=== PATIENT | female | born 1940 | race Caucasian/White ===

== ENCOUNTER 2017-08-12 14:29 | Outpatient (CLI) | payer BC ==
[2017-08-12] MEDS ORDERED: Sodium Chloride 0.9% 15 ML NEB ONE (16:57)
--- NOTE | 2017-08-13 09:28 | PRG ---
DATE OF SERVICE: 08/13/2017 HISTORY: Ms. Ketty Hennessy is a very pleasant 77-year-old accompanied by her who presents [facility] for evaluation of ulcerations of the right lower leg. The patient recently unde rwent percutaneous revascularization of the right lower extremity by Dr. Gilliland. Percutaneous revas cularization apparently included stent placement. As per Dr. Gilliland, the patient has discontinued t he use of Regranex. The patient has been receiving dressing changes of Adaptic, ABDs, Kerlix, and a n Saran bandage with the assistance of her since her last visit. PHYSICAL EXAMINATION: VITAL SIGNS: Temperature 97.8, pulse 72, respirations 18, blood pressure 135/60. Accu-Chek 106. EXTREMITIES: An ulceration of the right posterior lower leg is present, which measures approximatel y 7.0 x 9.0 cm. Two ulcerations of the right lateral lower leg are present, which measure approxima tely 5.5 x 3.0 cm and 2.0 x 2.0 cm. Granulation tissue is present within the margins of each wound. No purulent drainage is associated with any of the wounds, serous drainage is associated with each wound however. No cellulitis of the right lower leg is appreciated. No maceration of the skin of the right lower leg is noted. Less edema of the right lower leg is present on exam today, then was present at the time of the patient's last visit. ASSESSMENT AND PLAN: 1. Chronic venous hypertension with ulcers and inflammation. As stated above, the patient has rece ntly undergone percutaneous revascularization of the right lower extremity by Dr. Gilliland. Percutan eous revascularization apparently included stent placement. As per Dr. Gilliland, the patient has disc ontinued the use of Regranex. Dressing changes of Adaptic, ABDs, Kerlix, and an Saran bandage will be continued after cleansing and irrigation. The patient's is assisting Ms. Hennessy with her dr urrutiaing changes. Arrangements will be made for the home delivery of dressing supplies. I will see Marleny Hennessy again in two weeks. 2. Lymphedema tarda. The patient states she will begin in home lymphedema therapy tomorrow. 3. Diabetes mellitus. The patient's Accu-Chek in clinic today is 106. The patient has been remind ed that for optimal wound healing, her blood glucoses should remain below 150. 4. Peripheral vascular disease. 5. Hypertension. 6. Coronary artery disease. 7. Hypothyroidism.
== END 2017-08-12 14:30 | disposition home or self-care (01) ==
LOC: WCC 14:29
PROVIDERS: ATTEND Family Medicine
DX: I87.333 Chronic venous hypertension (idiopathic) with ulcer and inflammation of bilateral lower extremity (principal); E11.9 Type 2 diabetes mellitus without complications; I73.9 Peripheral vascular disease, unspecified; I25.10 Atherosclerotic heart disease of native coronary artery without angina pectoris; I10 Essential (primary) hypertension; I89.0 Lymphedema, not elsewhere classified
CPT/HCPCS: 97602; A4218

== ENCOUNTER 2017-08-26 12:37 | Outpatient (CLI) | payer BC ==
--- NOTE | 2017-08-26 15:32 | PRG ---
DATE OF SERVICE: 08/26/2017 HISTORY: Ms. Ketty Hennessy is a very pleasant 77-year-old accompanied by her , who presents to the [facility] for evaluation of ulcerations of the right lower leg. The patient has previous ly undergone percutaneous revascularization of the right lower extremity by Dr. Gilliland, percutaneous revascularization apparently included stent placement. As per Dr. Gilliland, the patient has disconti nued the use of Regranex. The patient has been receiving dressing changes of Adaptic, ABDs, Kerlix, and an Saran bandage with the assistance of her since her last visit. The patient has been r eceiving dressing changes every other day. The patient states that she is also using a pneumatic pu mp for treatment of lymphedema of the right lower extremity. The patient states that she has been u sing the pneumatic pump for 45 minutes each day for her right lower extremity. PHYSICAL EXAMINATION: VITAL SIGNS: Temperature 97.9, pulse 61, respirations 19, blood pressure 131/60. Accu-Chek 98. EXTREMITIES: The two largest ulcerations of the right lower leg measure approximately 9.5 x 4.9 cm and 3.0 x 5.5 cm. The dimensions of these wounds at the time of the patient's last visit were appro ximately 7.0 x 9.0 cm and 5.5 x 3.0 cm. Granulation tissue is present within the margins of each wo und. No purulent drainage is associated with either wound. Serous drainage is, however, associated with each wound. No cellulitis of the right lower leg is appreciated. No maceration of the skin o f the right lower leg is noted. A dorsalis pedis pulse is palpable on the right. Less edema of the right lower leg is present on exam today then was present at the time of the patient's last visit. ASSESSMENT AND PLAN: 1. Chronic venous hypertension with ulcers and inflammation. As stated above, the patient has unde rgone percutaneous revascularization of the right lower extremity by Dr. Gilliland, percutaneous revasc ularization apparently included stent placement. As per Dr. Gilliland, the patient has discontinued th e use of Regranex. Dressing changes of Adaptic, ABDs, Kerlix, and an Saran bandage will be continued after cleansing and irrigation. The patient's is assisting Ms. Hennessy with her dressing merchant ges. I have encouraged the patient and her to perform the preceding dressing changes on a d aily basis as opposed to every other day. Arrangements will again be made for the home delivery of dressing supplies. I will see Ms. Hennessy again in two weeks. 2. Lymphedema tarda. The patient is to continue in home lymphedema therapy utilizing her pneumatic pump for 45 minutes each day for the right lower extremity. 3. Diabetes mellitus. The patient's Accu-Chek in clinic today is 98. The patient has been reminde d that for optimal wound healing, her blood glucoses should remain below 150. 4. Peripheral vascular disease. 5. Hypertension. 6. Coronary artery disease. 7. Hypothyroidism.
[2017-08-26] MEDS ORDERED: Sodium Chloride 0.9% 15 ML NEB ONE (18:38)
== END 2017-08-26 12:38 | disposition home or self-care (01) ==
LOC: WCC 12:37
PROVIDERS: ATTEND Family Medicine
DX: I87.331 Chronic venous hypertension (idiopathic) with ulcer and inflammation of right lower extremity (principal); L97.919 Non-pressure chronic ulcer of unspecified part of right lower leg with unspecified severity; I89.0 Lymphedema, not elsewhere classified; E11.51 Type 2 diabetes mellitus with diabetic peripheral angiopathy without gangrene; I10 Essential (primary) hypertension; I25.10 Atherosclerotic heart disease of native coronary artery without angina pectoris; E03.9 Hypothyroidism, unspecified
CPT/HCPCS: 97602; A4218

== ENCOUNTER 2017-09-09 15:36 | Outpatient (CLI) | payer BC ==
[2017-09-09] MEDS ORDERED: Lidocaine 4% Topical Sol 50 ML BOT ONE (17:03)
[2017-09-09] MEDS ORDERED: Sodium Chloride 0.9% 15 ML NEB ONE (17:03)
--- NOTE | 2017-09-10 09:29 | PRG ---
DATE OF SERVICE: 09/09/2017 HISTORY: Ms. Ketty Hennessy is a very pleasant 77-year-old accompanied by her daughter who presents to the [facility] for evaluation of ulcerations of the right lower leg. The patient has previous ly undergone percutaneous revascularization of the right lower extremity by Dr. Gilliland. Percutaneou s revascularization apparently included stent placement. As per Dr. Gilliland, the patient has discont inued the use of Regranex. The patient has been receiving dressing changes of Adaptic, ABDs, Kerlix , and an Saran bandage since her last visit. The patient states that she is still using her pneumatic pump for treatment of lymphedema of the right lower extremity. The patient states that she has not been able to use her pneumatic pump as much as she would like since her last visit to the [facility]. PHYSICAL EXAMINATION: VITAL SIGNS: Temperature 97.8, pulse 65, respirations 19, blood pressure 138/60. Accu-Chek 112. EXTREMITIES: The two largest ulcerations of the right lower leg measure approximately 8.0 x 4.5 cm and 2.5 x 5.0 cm. The dimensions of these wounds at the time of the patient's last visit were appro ximately 9.5 x 4.9 cm and 3.0 x 5.5 cm. Granulation tissue is present within the margins of each wo und. No purulent drainage is associated with either wound. Serous drainage is, however, associated with both wounds. No cellulitis of the right lower leg is appreciated. No maceration of the skin of the right lower leg is noted. Again, less edema of the right lower leg is present on exam today than was present at the time of the patient's last visit. ASSESSMENT AND PLAN: 1. Chronic venous hypertension with ulcers and inflammation. As stated above, the patient has unde rgone percutaneous revascularization of the right lower extremity by Dr. Gilliland. Percutaneous sharon scularization apparently included stent placement. As per Dr. Gilliland, the patient has discontinued the use of Regranex. Dressing changes of Adaptic, ABDs, Kerlix, and an Saran bandage will be continue d after cleansing and irrigation. The patient's daughter is assisting Ms. Hennessy with her dressing c hanges. Arrangements were previously made for the home delivery of dressing supplies. I will see Marleny Hennessy again in two weeks. 2. Lymphedema tarda. The patient is to continue in home lymphedema therapy utilizing her pneumatic pump for 45 minutes each day for the right lower extremity. The patient has also been instructed t o keep her lower extremities elevated while sitting and to ambulate for 5-10 minutes each hour while awake. 3. Diabetes mellitus. The patient's Accu-Chek in clinic today is 112. The patient has been remind ed that for optimal wound healing, her blood glucoses should remain below 150. 4. Peripheral vascular disease. 5. Hypertension. 6. Coronary artery disease. 7. Hypothyroidism.
== END 2017-09-09 15:37 | disposition home or self-care (01) ==
LOC: WCC 15:36
PROVIDERS: ATTEND Family Medicine
DX: I87.331 Chronic venous hypertension (idiopathic) with ulcer and inflammation of right lower extremity (principal); E11.622 Type 2 diabetes mellitus with other skin ulcer; L97.919 Non-pressure chronic ulcer of unspecified part of right lower leg with unspecified severity; I89.0 Lymphedema, not elsewhere classified; I73.9 Peripheral vascular disease, unspecified; I10 Essential (primary) hypertension; I25.10 Atherosclerotic heart disease of native coronary artery without angina pectoris; E03.9 Hypothyroidism, unspecified
CPT/HCPCS: A4218; J2001

== ENCOUNTER 2017-10-09 08:12 | Outpatient (CLI) | payer BC ==
--- NOTE | 2017-09-25 18:35 | PRG ---
DATE OF SERVICE: 09/25/2017 HISTORY: Ms. Ketty Hennessy is a very pleasant 77-year-old accompanied by her , who presents to the [facility] Center for evaluation of ulcerations of the right lower leg. The patient is previously undergone percutaneous revascularization of the right lower extremity by Dr. Gilliland. Percutaneous re vascularization apparently included stent placement. As per Dr. Gilliland, the patient has discontinued the use of Regranex. The patient has been receiving dressing changes of Adaptic, ABDs, Kerlix, and an Saran bandage since her last visit. The patient states that she is still utilizing her pneumatic pu mp for treatment of lymphedema of the right lower extremity. PHYSICAL EXAMINATION: VITAL SIGNS: Temperature 97.5, pulse 63, respirations 18, blood pressure 139/61. Accu-Chek 81. EXTREMITIES: The two largest ulcerations of the right lower leg measure approximately 6.5 x 4.5 cm a nd 4.0 x 2.5 cm. The dimensions of these wounds at the time of the patient's last visit were approxi mately 8.0 x 4.5 cm and 2.5 x 5.0 cm. Granulation tissue is present within the margins of each wound . No purulent drainage is associated with either wound. No cellulitis of the right lower leg is sienna reciated. No maceration of the skin of the right lower leg is noted. A dorsalis pedis pulse is palp able on the right. No significant edema of the right lower leg is present on exam today. ASSESSMENT AND PLAN: 1. Chronic venous hypertension with ulcers and inflammation. As stated above, the patient has under gone percutaneous revascularization of the right lower extremity by Dr. Gilliland. Percutaneous revascu larization apparently included stent placement. As per Dr. Gilliland, the patient has discontinued the use of Regranex. Dressing changes of Adaptic, ABDs, Kerlix, and an Saran bandage will be continued aft er cleansing and irrigation. The patient's is assisting Ms. Hennessy with her dressing changes. Arrangements were previously made for the home delivery of dressing supplies. I will see Ms. Hennessy again in two weeks. 2. Lymphedema tarda. The patient is to continue in-home lymphedema therapy utilizing her pneumatic pump for 45 minutes each day for the right lower extremity. The patient has also been instructed pre viously to keep her lower extremities elevated while sitting in to ambulate for 5-10 minutes each milad r while awake. 3. Diabetes mellitus. The patient's Accu-Chek in clinic today is 81. The patient has been reminded that for optimal wound healing, her blood glucoses should remain below 150. 4. Peripheral vascular disease. 5. Hypertension. 6. Coronary artery disease. 7. Hypothyroidism.
[~2017-10-09 08:12] MED LIST: Lidocaine 4% Topical Sol 50 ML BOT ONE; Sodium Chloride 0.9% 15 ML NEB ONE
== END 2017-10-09 08:13 | disposition home or self-care (01) ==
LOC: WCC 08:12
PROVIDERS: ATTEND Family Medicine
DX: I87.331 Chronic venous hypertension (idiopathic) with ulcer and inflammation of right lower extremity (principal); I89.0 Lymphedema, not elsewhere classified; E11.9 Type 2 diabetes mellitus without complications; I73.9 Peripheral vascular disease, unspecified; I10 Essential (primary) hypertension; I25.10 Atherosclerotic heart disease of native coronary artery without angina pectoris; E03.9 Hypothyroidism, unspecified
CPT/HCPCS: 97602; A4218; J2001

== ENCOUNTER 2017-10-14 15:13 | Outpatient (CLI) | payer BC ==
[2017-10-14] MEDS ORDERED: Sodium Chloride 0.9% 15 ML NEB ONE (17:29)
--- NOTE | 2017-10-15 09:26 | PRG ---
DATE OF SERVICE: 10/14/2017 HISTORY: Ms. Ketty Hennessy is a very pleasant 77-year-old accompanied by her who presents t o the [facility] for evaluation of ulcerations to the right lower leg. The patient has previously undergone percutaneous revascularization of the right lower extremity by Dr. Gilliland, percutaneous rev ascularization apparently included stent placement. As per Dr. Gilliland, the patient had discontinued the use of Regranex. The patient has been receiving dressing changes of Adaptic, ABDs, Kerlix, and a n Saran bandage since her last visit. Again, the patient states that she is still utilizing her pneuma tic pump for treatment of lymphedema of the right lower extremity. She states, however, that for the past week she has not utilized her pneumatic pump. PHYSICAL EXAMINATION: VITAL SIGNS: Temperature 97.7, pulse 68, respirations 18, respirations 18, blood pressure 176/73, Ac cu-Chek 167. EXTREMITIES: The two largest ulcerations of the right lower leg measure approximately 5.0 x 4.0 and 4.0 x 2.4 cm. The dimensions of these wounds at the time of the patient's last visit were approximat almita 6.5 x 4.5 cm and 4.0 x 2.5 cm. Granulation tissue is present within the margins of each wound. No purulent drainage is associated with either wound. No cellulitis of the right lower leg is apprec iated. No maceration of the skin of the right lower leg is noted. No significant edema of the right lower leg is present on exam today. ASSESSMENT AND PLAN: 1. Chronic venous hypertension with ulcers and inflammation. As stated above, the patient has under gone percutaneous revascularization of the right lower extremity by Dr. Gilliland and percutaneous revas cularization apparently included stent placement. As per Dr. Gilliland, the patient has discontinued th e use of Regranex, dressing changes of Adaptic, ABDs, Kerlix, and an Saran bandage will be continued af ter cleansing and irrigation. The patient's will continue to assist Ms. Hennessy with her dress ing changes. Arrangements were previously made for the home delivery of dressing supplies. I will s ee Ms. Hennessy again in two weeks. 2. Lymphedema Tarda. The patient is to continue in home lymphedema therapy utilizing her pneumatic pump for 45 minutes each day for the right lower extremity. The patient has also been instructed pre viously to keep her lower extremities elevated while sitting and to ambulate for 5-10 minutes each ho ur while awake. 3. Diabetes mellitus. The patient's Accu-Chek in clinic today is 167. The patient has been reminde d that for optimal wound healing, her blood glucoses should remain below 150. 4. Peripheral vascular disease. 5. Hypertension. 6. Coronary artery disease. 7. Hypothyroidism.
== END 2017-10-14 15:14 | disposition home or self-care (01) ==
LOC: WCC 15:13
PROVIDERS: ATTEND Family Medicine
DX: I87.331 Chronic venous hypertension (idiopathic) with ulcer and inflammation of right lower extremity (principal); L97.919 Non-pressure chronic ulcer of unspecified part of right lower leg with unspecified severity; I89.0 Lymphedema, not elsewhere classified; E11.622 Type 2 diabetes mellitus with other skin ulcer; I73.9 Peripheral vascular disease, unspecified; I10 Essential (primary) hypertension; I25.10 Atherosclerotic heart disease of native coronary artery without angina pectoris
CPT/HCPCS: 97602; A4218

== ENCOUNTER 2017-10-31 14:31 | Outpatient (CLI) | payer BC ==
--- NOTE | 2017-10-31 19:11 | PRG ---
DATE OF SERVICE: 10/31/2017 HISTORY: Ms. Ketty Hennessy is a very pleasant 77-year-old who presents to the Wound Center for eval uation of ulcerations of the right lower leg. The patient has previously undergone percutaneous sharon scularization of the right lower extremity by Dr. Gilliland. Percutaneous revascularization apparently included stent placement. As per Dr. Gilliland, the patient has discontinued the use of Regranex. The patient has been receiving dressing changes of Adaptic, ABDs, Kerlix, and an Saran bandage since her visit. Again, the patient states that she is utilizing her pneumatic pump for treatment of lymphe tigre of the right lower extremity. Today, Ms. Hennessy states that she has not been utilizing her pneum atic pump consistently since her last visit to the Wound Center. PHYSICAL EXAMINATION: VITAL SIGNS: Temperature 98.1, pulse 74, blood pressure 152/64. Accu-Chek 65. EXTREMITIES: One large ulceration is present over the right lower leg which measures approximately 9 .5 x 12.0 cm. Granulation tissue is present within the wound margins. Islands of skin are also pres ent within the wound margins. No purulent drainage is associated with the wound. No cellulitis of t he right lower leg is appreciated. No maceration of the skin of the periwound is noted. No signific ant edema of the right foot and ankle is present on exam today. Edema of the right lower leg is, how ever, noted on today's exam. ASSESSMENT AND PLAN: 1. Chronic venous hypertension with ulcer and inflammation. As stated above, the patient has underg one percutaneous revascularization of the right lower extremity by Dr. Gilliland and percutaneous revasc ularization apparently included stent placement. As per Dr. Gilliland, the patient has discontinued the use of Regranex. Dressing changes of Adaptic, ABDs, Kerlix, and an Saran bandage will be continued af ter cleansing and irrigation. The patient's will continue to assist Ms. Hennessy with her dress ing changes. Arrangements were previously made for the home delivery of dressing supplies. I will s ee Ms. Hennessy again in 3 weeks. 2. Lymphedema tarda. I have asked the patient to utilize her pneumatic compensation on a consistent basis for right lower extremity lymphedema. 3. Diabetes mellitus. The patient's Accu-Chek in clinic today is 65. The patient has been reminded that for optimal wound healing, her blood glucoses should remain below 150. 4. Peripheral vascular disease. 5. Hypertension. 6. Coronary artery disease. 7. Hypothyroidism.
[2017-10-31] MEDS ORDERED: Sodium Chloride 0.9% 15 ML NEB ONE (21:23)
== END 2017-10-31 14:32 | disposition home or self-care (01) ==
LOC: WCC 14:31
PROVIDERS: ATTEND Family Medicine
DX: I87.331 Chronic venous hypertension (idiopathic) with ulcer and inflammation of right lower extremity (principal); E11.622 Type 2 diabetes mellitus with other skin ulcer; I89.0 Lymphedema, not elsewhere classified; I73.9 Peripheral vascular disease, unspecified; I25.10 Atherosclerotic heart disease of native coronary artery without angina pectoris; E03.9 Hypothyroidism, unspecified
CPT/HCPCS: A4218

== ENCOUNTER 2017-11-18 15:49 | Outpatient (CLI) | payer BC ==
[~2017-11-18 15:49] MED LIST changes: -Lidocaine 4% Topical Sol 50 ML BOT ONE
--- NOTE | 2017-11-19 10:13 | PRG ---
DATE OF SERVICE: 11/18/2017 HISTORY: Ms. Ketty Hennessy is a very pleasant 77-year-old who presents to the Wound Center for evaluation of ulcerations of the right lower leg. The patient has previously undergone percutaneous revascularization of the right lower extremity by Dr. Gilliland. Percutaneous revascularization apparently included stent placement. As per Dr. Gilliland, the patient has discontinued the use of Regranex. The patient has been receiving dressing changes of Adaptic, ABDs, Kerlix, and an Saran bandage since her last visit. Today, Ms. Hennessy states that she has been utilizing her pneumatic pump consistently for treatment of lymphedema of the right lower extremity. PHYSICAL EXAMINATION: VITAL SIGNS: Temperature 97.1, pulse 74, respiration 19, blood pressure 148/ 60. Accu-Chek 75. EXTREMITIES: One large ulceration is present over the right lower leg which measures approximately 13.0 x 23.0 cm. Granulation tissue is present within the wound margins. Islands of skin are also present within the wound margins. No purulent drainage is associated with the wound. Copious serous drainage, however, is noted on exam today. Erythema of the right lower leg is present on today's exam. Maceration of the skin of the right lower leg is also noted. No significant edema of the right lower leg is noted on today's exam. ASSESSMENT AND PLAN: 1. Chronic venous hypertension with ulcer and inflammation. As stated above, the patient has undergone percutaneous revascularization of the right lower extremity by Dr. Gilliland, and percutaneous revascularization apparently included stent placement. As per Dr. Gilliland, the patient has discontinued the use of Regranex. Dressing changes of Adaptic, ABDs, Kerlix, and an Saran bandage will be continued after cleansing and irrigation. The patient's will continue to assist Ms. Hennessy with her dressing changes. I have asked the patient to increase the frequency of her dressing changes to daily if possible. Arrangements will be made again for the home delivery of dressing supplies. The patient has also been given a prescription for Bactrim DS #20 one p.o. b.i.d. x10 days. I will see Ms. Hennessy again in two weeks. 2. Lymphedema tarda. I have asked the patient to continue to utilize her pneumatic pump on a daily basis for right lower extremity lymphedema. 3. Diabetes mellitus. The patient's Accu-Chek in clinic today is 75. The patient has been reminded that for optimal wound healing, her blood glucoses should remain below 150. 4. Peripheral vascular disease. 5. Hypertension. 6. Coronary artery disease. 7. Hypothyroidism. MTDD
== END 2017-11-18 15:50 | disposition home or self-care (01) ==
LOC: WCC 15:49
PROVIDERS: ATTEND Family Medicine
DX: I87.331 Chronic venous hypertension (idiopathic) with ulcer and inflammation of right lower extremity (principal); L97.919 Non-pressure chronic ulcer of unspecified part of right lower leg with unspecified severity; I89.0 Lymphedema, not elsewhere classified; E11.622 Type 2 diabetes mellitus with other skin ulcer; I73.9 Peripheral vascular disease, unspecified; I10 Essential (primary) hypertension; I25.10 Atherosclerotic heart disease of native coronary artery without angina pectoris; E03.9 Hypothyroidism, unspecified
CPT/HCPCS: 97602; A4218

== ENCOUNTER 2018-01-29 14:57 | Outpatient (CLI) | payer BC ==
--- NOTE | 2018-01-29 17:13 | PRG ---
DATE OF SERVICE: 01/29/2018 HISTORY: Ms. Ketty Hennessy is a very pleasant 78-year-old who presents to the Wound Center for eval uation of ulcerations of the right lower leg. The ulcerations had almost completely healed during e patient's stay at [facility]. Ms. Hennessy was admitted to [facility] after admission to [facility] with chest pain. During the patient's stay at [facility], Ms. Hennessy was receiv ing dressing changes of Adaptic for the ulcerations of her right lower leg. Upon the patient's disch arge from [facility], arrangements were made for dressing changes with the assistance of Home Health . The patient states that she has been receiving dressing changes with the assistance of Home Health every other day. PHYSICAL EXAMINATION: VITAL SIGNS: Temperature 98.0, pulse 70, respirations 18, blood pressure 123/74. EXTREMITIES: A large ulceration is present over the right lower leg, which measures approximately 9. 0 x 6.0 cm. The dimensions of this wound at the time of the patient's visit to the Wound Center on 0 11/18/2017 were approximately 13.0 x 23.0 cm. Granulation tissue is present within the wound margins. Islands of skin are also present within the wound margins. No purulent drainage is associated with the wound. Copious serous drainage is, however, noted on exam today. No cellulitis of the right lo wer leg is appreciated. Maceration of the skin of the right lower leg is noted. Edema of the right foot and lower leg is also noted on exam today. ASSESSMENT AND PLAN: 1. Chronic venous hypertension with ulcer and inflammation. The patient has undergone percutaneous revascularization of the right lower extremity by Dr. Gilliland and percutaneous revascularization appar ently included stent placement. Dressing changes of Adaptic, ABDs, Kerlix, and an Saran bandage are to be performed on a daily basis after cleansing and irrigation with the assistance of Home Health. I have also asked the patient to utilize her pneumatic pump on a daily basis for 45 minutes for the rig ht lower extremity. I will see Ms. Hennessy again in two weeks. 2. Lymphedema Tarda. 3. Diabetes mellitus. The patient's Accu-Chek in clinic today is 75. The patient has been reminded that for optimal wound healing, her blood glucoses should remain below 150. 4. Peripheral vascular disease. 5. Hypertension. 6. Coronary artery disease. 7. Hypothyroidism.
[2018-01-31] MEDS ORDERED: Sodium Chloride 0.9% 15 ML NEB ONE (12:33)
== END 2018-01-29 14:58 | disposition home or self-care (01) ==
LOC: WCC 14:57
PROVIDERS: ATTEND Family Medicine
DX: I87.331 Chronic venous hypertension (idiopathic) with ulcer and inflammation of right lower extremity (principal); L97.819 Non-pressure chronic ulcer of other part of right lower leg with unspecified severity; I89.0 Lymphedema, not elsewhere classified; E11.51 Type 2 diabetes mellitus with diabetic peripheral angiopathy without gangrene; I73.9 Peripheral vascular disease, unspecified; I10 Essential (primary) hypertension; I25.10 Atherosclerotic heart disease of native coronary artery without angina pectoris; E03.9 Hypothyroidism, unspecified
CPT/HCPCS: 29581

== ENCOUNTER 2018-02-12 15:12 | Outpatient (CLI) | payer BC ==
[2018-02-12] MEDS ORDERED: Sodium Chloride 0.9% 15 ML NEB ONE (17:58)
[2018-02-12] MEDS ORDERED: Lidocaine 2% Jelly 5 ML TUBE ONE (17:58)
--- NOTE | 2018-02-12 19:09 | PRG ---
DATE OF SERVICE: 02/12/2018 HISTORY: Ms. Ketty Hennessy is a very pleasant 78-year-old who presents to the Wound Center for eval uation of multiple ulcerations of the right lower leg. The ulcerations had almost completely healed during the patient's stay at [facility]. Ms. Hennessy was admitted to [facility] after admission to [facility] with chest pain. During the patient's stay at [facility], Ms. Hennessy r eceived dressing changes of Adaptic for the ulcerations of her right lower leg. Upon the patient's d ischarge from [facility], arrangements were made for dressing changes with the assistance of Home He [facility]. The patient states that she continues to receive dressing changes with the assistance of Home Health. PHYSICAL EXAMINATION: VITAL SIGNS: Temperature 97.8, pulse 74, blood pressure 128/74. EXTREMITIES: Multiple ulcerations are present over the right lower leg, which are associated with se kiley drainage. Erythema of the right lower leg is also present. Maceration of the skin of the right lower leg is noted. Edema of the right lower leg is also noted on exam today. ASSESSMENT AND PLAN: 1. Chronic venous hypertension with ulcer and inflammation. The patient has undergone percutaneous revascularization of the right lower extremity by Dr. Gilliland and percutaneous revascularization appar ently included stent placement. Dressing changes of Adaptic will be discontinued. Dressing changes of Xeroform gauze will be initiated today. ABDs, Kerlix, and an Saran bandage will be utilized as seco ndary dressings. These dressing changes are to be performed on a daily basis after cleansing and irr igation with the assistance of Home Health. I have also asked the patient to continue to utilize her pneumatic pump on a daily basis for 45 minutes for the right lower extremity. The patient has also been given a prescription for Augmentin 875/125, #20, 1 p.o. b.i.d. x10 days. I will see Ms. Hennessy a gain in two weeks. 2. Lymphedema tarda. 3. Diabetes mellitus. Accu-Cheks will be obtained at the time of the patient's clinic visits. The patient has been reminded that for optimal wound healing, her blood glucoses should remain below 150. 4. Peripheral vascular disease. 5. Hypertension. 6. Coronary artery disease. 7. Hypothyroidism.
== END 2018-02-12 15:13 | disposition home or self-care (01) ==
LOC: WCC 15:12
PROVIDERS: ATTEND Family Medicine
DX: I87.331 Chronic venous hypertension (idiopathic) with ulcer and inflammation of right lower extremity (principal); L97.819 Non-pressure chronic ulcer of other part of right lower leg with unspecified severity; I89.0 Lymphedema, not elsewhere classified; E11.51 Type 2 diabetes mellitus with diabetic peripheral angiopathy without gangrene; I73.9 Peripheral vascular disease, unspecified; I10 Essential (primary) hypertension; I25.10 Atherosclerotic heart disease of native coronary artery without angina pectoris; E03.9 Hypothyroidism, unspecified
CPT/HCPCS: 97602; A4218

== ENCOUNTER 2018-03-03 13:36 | Outpatient (CLI) | payer BC ==
--- NOTE | 2018-02-26 16:41 | PRG ---
DATE OF SERVICE: 02/26/2018 HISTORY: Ms. Ketty Hennessy is a very pleasant 78-year-old who presents to the Wound Center for evaluation of multiple ulcerations of the right lower leg. The ulcerations had almost completely he aled during the patient's stay at [facility]. Ms. Hennessy was admitted to [facility] after admission to [facility] with chest pain. During the patient's stay at [facility], Ms. Hayley rhdoes received dressing changes of Adaptic for the ulcerations of her right lower leg. Upon the patien t's discharge from [facility], arrangements were made for dressing changes with the assistance of [facility]. The patient states that she continues to receive dressing changes with the assistance of [facility]. Ms. Hennessy states that she was unable to tolerate dressing changes of Xeroform gauze. S he has been receiving instead dressing changes of Adaptic followed by an ABD, Kerlix, and an Saran band age. PHYSICAL EXAMINATION: VITAL SIGNS: Pulse 77, respirations 18, blood pressure 124/58, Accu-Chek 117. EXTREMITIES: An ulceration of the right posterior lower leg is present which measures approximately 5.0 x 7.0 cm. Serous drainage is associated with the wound. Maceration of the skin of the right low er leg is noted. Less edema of the right lower leg is present on exam today than at the time of the patient's last visit. ASSESSMENT AND PLAN: 1. Chronic venous hypertension with ulcer and inflammation. The patient has undergone percutaneous revascularization of the right lower extremity by Dr. Gilliland and percutaneous revascularization appar ently included stent placement. Dressing changes of Adaptic, ABD, Kerlix, and an Saran bandage will be continued on a daily basis after cleansing and irrigation with the assistance of Home Health. I hav e also asked the patient to continue to utilize her pneumatic pump on a daily basis for 45 minutes fo r the right lower extremity. I will see Ms. Hennessy again in 2-4 weeks. 2. Lymphedema tarda. 3. Diabetes mellitus. The patient's Accu-Chek in clinic today is 117. The patient has been reminde d that for optimal wound healing, her blood glucoses should remain below 150. 4. Peripheral vascular disease. 5. Hypertension. 6. Coronary artery disease. Today, the patient reports malaise for which she has already contacted Dr. Gilliland earlier today. I have asked the patient to report to the Emergency Department at [facility]. The patient states she will report to the [facility] Tia rgency Department upon her discharge from clinic today. 7. Hypothyroidism.
== END 2018-03-03 13:37 | disposition home or self-care (01) ==
LOC: WCC 13:36
PROVIDERS: ATTEND Family Medicine
DX: I87.331 Chronic venous hypertension (idiopathic) with ulcer and inflammation of right lower extremity (principal); E11.621 Type 2 diabetes mellitus with foot ulcer; L97.519 Non-pressure chronic ulcer of other part of right foot with unspecified severity; I89.0 Lymphedema, not elsewhere classified; I73.9 Peripheral vascular disease, unspecified; I10 Essential (primary) hypertension; I25.10 Atherosclerotic heart disease of native coronary artery without angina pectoris; E03.9 Hypothyroidism, unspecified
CPT/HCPCS: 97602; A4218

== ENCOUNTER 2018-05-01 12:55 | Outpatient (CLI) | payer BC ==
--- NOTE | 2018-05-01 13:57 | ULT ---
ULTRASOUND LOWER EXTREMITY DOPPLER: HISTORY: Venous insufficiency. COMPARISON: A study from 2016. TECHNIQUE: Real-time, juarez scale, color flow with spectral analysis of the right lower extremity was performed. The common femoral, femoral, and proximal portion greater saphenous and deep femoral veins as well a s popliteal and posterior tibial veins were interrogated. FINDINGS: Normal flow, augmentation, and compression. There is extensive soft tissue swelling no active diseas e interstitial edema. IMPRESSION: 1. No deep vein thrombosis. 2. Extensive lower extremity edema. POS: LAURY
== END 2018-05-01 12:56 | disposition home or self-care (01) ==
LOC: ULT 12:55
PROVIDERS: ATTEND Family Medicine
DX: M79.89 Other specified soft tissue disorders (principal); M79.604 Pain in right leg; R60.0 Localized edema

== ENCOUNTER 2018-05-12 15:50 | Outpatient (CLI) | payer BC ==
--- NOTE | 2018-05-13 08:58 | PRG ---
DATE OF SERVICE: 05/12/2018 HISTORY: Ms. Ketty Hennessy is a very pleasant 78-year-old who presents to the Wound Center for evaluation of multiple ulcerations of the right lower leg. Ms. Hennessy was recently discharged from [facility]. During her stay at [facility] the patient received dressing changes of Xerofor m gauze with an improvement in the appearance of her right lower leg. Ms. Hennessy again complains of p ain of her right lower leg. The patient denies any fever or chills. PHYSICAL EXAMINATION: VITAL SIGNS: Temperature 98.3, pulse 94, respirations 19, blood pressure 127/63, Accu-Chek 150. EXTREMITIES: A circumferential ulceration is present over the middle of the right lower leg. Island s of skin are present within the wound margins. Copious serous drainage is associated with the wound . Maceration of the skin of the right lower leg is noted. Mild to moderate edema of the right lower leg is present on exam today. ASSESSMENT AND PLAN: 1. Chronic venous hypertension with ulcer and inflammation. The patient has undergone percutaneous revascularization of the right lower extremity by Dr. Gilliland and percutaneous revascularization appar ently included stent placement. Dressing changes of Xeroform gauze, Kerlix, ABDs or OptiLock followe d by an Saran bandage will be continued on a daily basis after cleansing and irrigation with the assist ance of Home Health. I have also asked the patient to continue to utilize her pneumatic pump on a da earnest basis for 45 minutes for the right lower extremity. I will see Ms. Hennessy again in 2 weeks. 2. Lymphedema tarda. 3. Diabetes mellitus. The patient's Accu-Chek in clinic today is 150. The patient has been reminde d that for optimal wound healing, her blood glucoses should remain below 150. 4. Peripheral vascular disease. 5. Hypertension. 6. Coronary artery disease. 7. Hypothyroidism.
== END 2018-05-12 15:51 | disposition home or self-care (01) ==
LOC: WCC 15:50
PROVIDERS: ATTEND Family Medicine
DX: I87.331 Chronic venous hypertension (idiopathic) with ulcer and inflammation of right lower extremity (principal); E11.622 Type 2 diabetes mellitus with other skin ulcer; L97.919 Non-pressure chronic ulcer of unspecified part of right lower leg with unspecified severity; I89.0 Lymphedema, not elsewhere classified; I25.10 Atherosclerotic heart disease of native coronary artery without angina pectoris; I73.9 Peripheral vascular disease, unspecified; E03.9 Hypothyroidism, unspecified
CPT/HCPCS: 97602

== ENCOUNTER 2018-06-02 15:03 | Outpatient (CLI) | payer BC ==
--- NOTE | 2018-06-02 19:01 | PRG ---
DATE OF SERVICE: 06/02/2018 HISTORY: Ms. Ketty Hennessy is a very pleasant 78-year-old, accompanied by her , who pres ents to the Wound Center for evaluation of multiple ulcerations of the right lower leg. The patient was recently discharged from [facility]. During her stay at [facility], the patient rece ived dressing changes of Xeroform gauze with an improvement in the appearance of her right lower leg. Today, Ms. Hennessy complains of copious serous drainage from her right lower leg. The patient denies any fever or chills. PHYSICAL EXAMINATION: VITAL SIGNS: Temperature 97.9, pulse 74, respirations 18, blood pressure 126/74. Accu-Chek 136. EXTREMITIES: A circumferential ulceration is present over the middle of the right lower leg. The le ngth of the circumferential ulceration is approximately 12.5 cm. Islands of skin are again noted wit hin the wound margins. Copious serous drainage is associated with the wound. The drainage has a fru ity odor. Maceration of the skin of the right lower leg is noted. Less edema of the right lower leg is present on exam today than at the time of the patient's last visit. ASSESSMENT AND PLAN: 1. Chronic venous hypertension with ulcer and inflammation. The patient has undergone percutaneous revascularization of the right lower extremity by Dr. Gilliland and percutaneous revascularization appar ently included stent placement. Dressing changes of Xeroform gauze, Kerlix, ABDs or OptiLock followe d by an Saran bandage will be continued on a daily basis after cleansing and irrigation with the assist ancamarilis of Home Health. I have asked the patient to continue to utilize her pneumatic pump on a daily b asis for 45 minutes for the right lower extremity. Cultures of the serous drainage from the right lo wer leg were obtained today and sent for aerobic and anaerobic studies. I will see Ms. Hennessy again i n two weeks. Antibiotic therapy will be initiated based upon the results of the cultures obtained to day. 2. Lymphedema tarda. 3. Diabetes mellitus. The patient's Accu-Chek in clinic today is 136. The patient has been reminde d that for optimal wound healing, her blood glucoses should remain below 150. 4. Peripheral vascular disease. 5. Hypertension. 6. Coronary artery disease. 7. Hypothyroidism.
== END 2018-06-02 15:04 | disposition home or self-care (01) ==
LOC: WCC 15:03
PROVIDERS: ATTEND Family Medicine
DX: I87.331 Chronic venous hypertension (idiopathic) with ulcer and inflammation of right lower extremity (principal); E11.622 Type 2 diabetes mellitus with other skin ulcer; E11.51 Type 2 diabetes mellitus with diabetic peripheral angiopathy without gangrene; L97.919 Non-pressure chronic ulcer of unspecified part of right lower leg with unspecified severity; I89.0 Lymphedema, not elsewhere classified; I25.10 Atherosclerotic heart disease of native coronary artery without angina pectoris; E03.9 Hypothyroidism, unspecified
CPT/HCPCS: 87070; 87077; 87186; 87205

== ENCOUNTER 2018-06-25 15:06 | Outpatient (CLI) | payer BC ==
[2018-06-25] MEDS ORDERED: Sodium Chloride 0.9% 15 ML NEB ONE (16:55)
--- NOTE | 2018-06-25 16:58 | PRG ---
DATE OF SERVICE: 06/25/2018 HISTORY: Ms. Ketty Hennessy is a very pleasant 78-year-old accompanied by her who present s to the Wound Center for evaluation of multiple ulcerations of her right lower leg. The patient was recently discharged from [facility]. During her stay at [facility], the patient receive d dressing changes of Xeroform gauze with an improvement in the appearance of her right lower leg. T he patient's states that Ms. Hennessy has been unable to tolerate dressing changes with Xeroform gauze. She is therefore receiving dressing changes of Adaptic for the ulceration of her right lower leg. Again, the patient reports copious serous drainage from her right lower leg. Ms. Hennessy denies any fever or chills. PHYSICAL EXAMINATION: VITAL SIGNS: Temperature 97.9, pulse 93, blood pressure 118/57. EXTREMITIES: A circumferential ulceration is still present over the middle of the right lower leg. The length of the circumferential ulceration is approximately 11 cm. The length of this circumferent ial ulceration at the time of the patient's visit on 06/02/2018 was approximately 12.5 cm. Islands o f skin are again noted within the wound margins. Copious serous drainage is associated with the woun d. The wound is associated with a fruity odor on exam today. Maceration of the skin of the right lo wer leg is noted. Edema of the right lower leg is present on exam today. ASSESSMENT AND PLAN: 1. Chronic venous hypertension with ulcer and inflammation. The patient has undergone percutaneous revascularization of the right lower extremity by Dr. Gilliland and percutaneous revascularization appar ently included stent placement. The ulceration will be dressed with Adaptic, ABDs, Kerlix, and an Ac e bandage today. I have recommended admission to Ms. Hennessy for treatment with IV antibiotics. I hav e also discussed the treatment plan with Dr. Gilliland. The patient agrees to report to the Emergency D epartment at [facility] tomorrow for admission for treatment with IV antibioti cs. Cultures obtained at the time of the patient's last visit revealed the growth of Pseudomonas aer uginosa sensitive to p.o. antibiotics to which the patient is allergic. I have explained to the lindsay ent that she will therefore require admission for treatment with IV antibiotics. The patient and her understand and are in agreement with the preceding treatment plan. I have explained to the patient and her that Infectious Diseases will likely direct the patient's antibiotic therapy. 2. Lymphedema tarda. 3. Diabetes mellitus. The patient's Accu-Chek in clinic today is 170. The patient has been reminde d that for optimal wound healing, her blood glucoses should remain below 150. 4. Peripheral vascular disease. 5. Hypertension. 6. Coronary artery disease. 7. Hypothyroidism.
== END 2018-06-25 15:07 | disposition home or self-care (01) ==
LOC: WCC 15:06
PROVIDERS: ATTEND Family Medicine
DX: I87.331 Chronic venous hypertension (idiopathic) with ulcer and inflammation of right lower extremity (principal); E11.622 Type 2 diabetes mellitus with other skin ulcer; L97.919 Non-pressure chronic ulcer of unspecified part of right lower leg with unspecified severity; I89.0 Lymphedema, not elsewhere classified; I11.9 Hypertensive heart disease without heart failure; I25.10 Atherosclerotic heart disease of native coronary artery without angina pectoris; E03.9 Hypothyroidism, unspecified; I73.9 Peripheral vascular disease, unspecified
CPT/HCPCS: A4218

== ENCOUNTER 2018-07-30 14:04 | Outpatient (CLI) | payer BC ==
[2018-07-30] MEDS ORDERED: Sodium Chloride 0.9% 15 ML NEB ONE (20:40)
--- NOTE | 2018-07-31 17:12 | PRG ---
DATE OF SERVICE: 07/31/2018 HISTORY: Ms. Ketty Hennessy is a very pleasant 78-year-old accompanied by a caregiver, who presen ts to the Wound Center for evaluation of multiple ulcerations of the right lower leg. The patient wa s recently discharged from [facility] after admission for treatment with IV antib iotics. The patient states she is now taking p.o. antibiotics as per Dr. Benito Green of Infectious Diseases. The patient continues to receive dressing changes of Adaptic, ABDs, OptiLock, Kerlix, and an Saran bandage for her right lower leg ulceration. The patient states that she has not taken her La six as prescribed or used her pneumatic pump as prescribed for the past few days. The patient denies any fever or chills. PHYSICAL EXAMINATION: VITAL SIGNS: Temperature 97.9, pulse 105, respirations 23, blood pressure 112/53. Accu-Chek 132. EXTREMITIES: A circumferential ulceration is still present over the middle of the right lower leg. The length of the circumferential ulceration is approximately 13.5 cm. Islands of skin are again not ed within the wound margins. Copious serous drainage is associated with the wound. No maceration of the skin of the periwound is noted. Edema of the right lower leg is present on today's exam. ASSESSMENT AND PLAN: 1. Chronic venous hypertension with ulcer and inflammation. The patient has undergone percutaneous revascularization of the right lower extremity by Dr. Gilliland and percutaneous revascularization appar ently included stent placement. Dressing changes of Adaptic, ABDs OptiLock, Kerlix, and an Saran alexis ge will be continued on a daily basis after cleansing and irrigation with the assistance of [facility]. The patient is also to continue p.o. antibiotics as per Dr. Benito Green of Infectious Diseases . I have also asked the patient to resume taking her Lasix as previously prescribed and to utilize h er pneumatic pump on a consistent basis. The patient states that she may undergo a percutaneous proc edure for treatment of her right lower leg venous ulceration by Dr. Gilliland in the near future. Consi deration will also be given to treatment with a skin substitute in the near future. 2. Lymphedema tarda. 3. Diabetes mellitus. The patient's Accu-Chek in clinic today is 132. The patient has been reminde d that for optimal wound healing, her blood glucoses should remain below 150. 4. Peripheral vascular disease. 5. Hypertension. 6. Coronary artery disease. 7. Hypothyroidism.
== END 2018-07-30 14:05 | disposition home or self-care (01) ==
LOC: WCC 14:04
PROVIDERS: ATTEND Family Medicine
DX: I87.331 Chronic venous hypertension (idiopathic) with ulcer and inflammation of right lower extremity (principal); L97.919 Non-pressure chronic ulcer of unspecified part of right lower leg with unspecified severity; I89.0 Lymphedema, not elsewhere classified; E03.9 Hypothyroidism, unspecified; E11.51 Type 2 diabetes mellitus with diabetic peripheral angiopathy without gangrene; I25.10 Atherosclerotic heart disease of native coronary artery without angina pectoris; I10 Essential (primary) hypertension
CPT/HCPCS: A4218

== ENCOUNTER 2018-07-31 13:30 | Outpatient (CLI) | payer BC | END 2018-07-31 13:31 | disposition home or self-care (01) | LOC: WCC 13:30 | PROVIDERS: ATTEND Family Medicine | DX: I87.333 Chronic venous hypertension (idiopathic) with ulcer and inflammation of bilateral lower extremity (principal) | CPT/HCPCS: 97602 ==

== ENCOUNTER 2018-08-28 13:26 | Outpatient (CLI) | payer BC ==
--- NOTE | 2018-08-28 16:32 | PRG ---
DATE OF SERVICE: 08/28/2018 HISTORY: Ms. Ketty Hennessy is a very pleasant 78-year-old accompanied by her spouse who presents to the Wound Center for evaluation of a circumferential ulceration over the mid right lower leg. Th e patient was recently discharged from the [facility] after admission for treatme nt with IV antibiotics. At the time of the patient's last visit, Ms. Hennessy stated that she is now ta griselda p.o. antibiotics as per Dr. Benito Green of Infectious Diseases. The patient states that durin g her stay at [facility], a trial of negative pressure therapy was initiated, and that she was discharged to home with a wound VAC. The patient denies any fever or chills. PHYSICAL EXAMINATION: VITAL SIGNS: Temperature 97.9, pulse 87, respirations 21, blood pressure 128/63. Accu-Chek 146. EXTREMITIES: A circumferential ulceration is present over the mid right lower leg. The length of th e circumferential ulceration is approximately 12.5 cm. Islands of skin are again noted within the wo und margins. Copious serous drainage is again associated with the wound. No maceration of the skin of the periwound is noted. Edema of the right lower leg is present on today's exam. The length of t he circumferential ulceration at the time of the patient's last visit was approximately 13.5 cm. Hya lomatrix was applied to the wound bed of the ulceration after fenestration of the silicone layer. Th e ulceration was then dressed with Adaptic, ABDs, Kerlix, and an Saran bandage. ASSESSMENT AND PLAN: 1. Chronic venous hypertension with ulcer and inflammation. The patient has undergone percutaneous revascularization of the right lower extremity by Dr. Gilliland and percutaneous revascularization appar ently included stent placement. The patient previously stated that she may undergo a percutaneous pr ocedure for treatment of her right lower leg venous ulceration by Dr. Gilliland in the near future. Hya lomatrix was applied to the wound bed of the ulceration today. Arrangements will be made for negativ e pressure therapy with dressing changes of the wound VAC 3 times per week with the assistance of [employer]. I have discussed the treatment plan with one of the patient's home health nurses. 2. Lymphedema tarda. 3. Diabetes mellitus. The patient's Accu-Chek in clinic today is 146. The patient has been reminde d that for optimal wound healing, her blood glucoses should remain below 150. 4. Peripheral vascular disease. 5. Hypertension. 6. Coronary artery disease. 7. Hypothyroidism.
== END 2018-08-28 13:27 | disposition home or self-care (01) ==
LOC: WCC 13:26
PROVIDERS: ATTEND Family Medicine
DX: I87.331 Chronic venous hypertension (idiopathic) with ulcer and inflammation of right lower extremity (principal); L97.919 Non-pressure chronic ulcer of unspecified part of right lower leg with unspecified severity; E11.51 Type 2 diabetes mellitus with diabetic peripheral angiopathy without gangrene; I10 Essential (primary) hypertension; I25.10 Atherosclerotic heart disease of native coronary artery without angina pectoris; E03.9 Hypothyroidism, unspecified; I89.0 Lymphedema, not elsewhere classified
CPT/HCPCS: C5271; Q4117

== ENCOUNTER 2018-09-10 14:33 | Outpatient (CLI) | payer BC ==
--- NOTE | 2018-09-10 16:34 | PRG ---
DATE OF SERVICE: 09/10/2018 HISTORY: Ms. Ketty Hennessy is a very pleasant 78-year-old, accompanied by her spouse, who presen ts to the Wound Center for evaluation of a circumferential ulceration over the right lower leg. The patient was recently discharged from [facility] after admission for treatment wit h IV antibiotics. At the time of a previous visit, Ms. Hennessy stated that she had been taking p.o. an tibiotics as per Dr. Green of Infectious Diseases. The patient stated that, during her stay at [facility], a trial of negative pressure therapy was initiated, and that she was disch arged to home with a wound VAC. Today, Ms. Hennessy states that she was unable to tolerate a trial of n egative pressure therapy after her discharge to home. The patient complains of malaise and nausea to day. PHYSICAL EXAMINATION: VITAL SIGNS: Temperature 97.7, pulse 97, respirations 20, blood pressure 130/67. Accu-Chek 159. EXTREMITIES: A circumferential ulceration is present over the mid right lower leg. Islands of skin are again noted within the wound margins. Copious serous drainage is again associated with the wound . Maceration of the skin of the periwound is noted. Edema of the right lower leg is present on exam today. ASSESSMENT AND PLAN: 1. Chronic venous hypertension with ulcer and inflammation. The patient has undergone percutaneous revascularization of the right lower extremity by Dr. Gilliland and percutaneous revascularization appar ently included stent placement. The patient previously stated that she may undergo a percutaneous pr ocedure for treatment of her right lower leg venous ulceration by Dr. Gilliland in the near future. The patient states that she was instructed to report to the emergency room yesterday by Dr. Gilliland. Ms. Hennessy states that, upon her discharge from the Wound Center today, she will report to the [facility] Emergency Department. For now, dressing changes of Adaptic, ABDs, OptiLock, and Kerlix will be continued on a daily basis after cleansing and irrigation with the assistance of Home Health and the patient's . 2. Lymphedema tarda. 3. Diabetes mellitus. The patient's Accu-Chek in clinic today is 159. The patient has been reminde d that, for optimal wound healing, her blood glucoses should remain below 150. 4. Peripheral vascular disease. 5. Hypertension. 6. Coronary artery disease. 7. Hypothyroidism.
== END 2018-09-10 14:34 | disposition home or self-care (01) ==
LOC: WCC 14:33
PROVIDERS: ATTEND Family Medicine
DX: I87.331 Chronic venous hypertension (idiopathic) with ulcer and inflammation of right lower extremity (principal); L97.919 Non-pressure chronic ulcer of unspecified part of right lower leg with unspecified severity; I89.0 Lymphedema, not elsewhere classified; E11.9 Type 2 diabetes mellitus without complications; I73.9 Peripheral vascular disease, unspecified; I10 Essential (primary) hypertension; I25.10 Atherosclerotic heart disease of native coronary artery without angina pectoris; E03.9 Hypothyroidism, unspecified
CPT/HCPCS: 36416; 97602; A4218

== ENCOUNTER 2018-09-24 15:01 | Outpatient (CLI) | payer BC ==
--- NOTE | 2018-09-24 16:30 | PRG ---
DATE OF SERVICE: 09/24/2018 HISTORY: Ms. Ketty Hennessy is a very pleasant 78-year-old accompanied by her spouse who presents to the Wound Center for evaluation of a circumferential ulceration over the right lower leg. The pa tieevita states that she is presently taking p.o. antibiotics prescribed for a urinary tract infection. The patient states that she is to undergo iliac vein stenting by Dr. Gilliland in the near future. The patient again complains of pain associated with the ulceration of her right lower leg. PHYSICAL EXAMINATION: VITAL SIGNS: Temperature 97.9, pulse 89, respirations 24, blood pressure 125/67. Accu-Chek 99. EXTREMITIES: A circumferential ulceration is present over the mid right lower leg. Islands of skin are again noted within the wound margins. Copious serous drainage is again associated with the wound . Maceration of the skin of the periwound is noted. Edema of the right lower leg is present on exam today. The depth of the ulceration has increased recently. ASSESSMENT AND PLAN: 1. Chronic venous hypertension with ulcer and inflammation. The patient has undergone percutaneous revascularization of the right lower extremity by Dr. Gilliland and percutaneous revascularization appar ently included stent placement. The patient states that she will undergo stenting of the iliac vein by Dr. Gilliland later this month. Until and after her procedure, the patient is to perform dressing ch anges of Adaptic, ABDs, OptiLock and Kerlix on a daily basis after cleansing and irrigation with the assistance of Home Health and the patient's . I will see Ms. Hennessy after she undergoes iliac vein stent placement. The patient and her understand and are in agreement with the preceding treatment plan. 2. Lymphedema tarda. 3. Diabetes mellitus. The patient's Accu-Chek in clinic today is 99. The patient has been reminded that for optimal wound healing, her blood glucoses should remain below 150. 4. Peripheral vascular disease. 5. Hypertension. 6. Coronary artery disease. 7. Hypothyroidism.
[2018-09-24] MEDS ORDERED: Lidocaine 4% Topical Sol 50 ML BOT ONE (18:00)
== END 2018-09-24 15:02 | disposition home or self-care (01) ==
LOC: WCC 15:01
PROVIDERS: ATTEND Family Medicine
DX: I87.331 Chronic venous hypertension (idiopathic) with ulcer and inflammation of right lower extremity (principal); E11.622 Type 2 diabetes mellitus with other skin ulcer; L97.919 Non-pressure chronic ulcer of unspecified part of right lower leg with unspecified severity; I89.0 Lymphedema, not elsewhere classified; I73.9 Peripheral vascular disease, unspecified; I10 Essential (primary) hypertension; I25.10 Atherosclerotic heart disease of native coronary artery without angina pectoris; E03.9 Hypothyroidism, unspecified
CPT/HCPCS: 97602; J2001